=== PATIENT | male | born 1965 | race African-American/Black ===

== ENCOUNTER 2024-04-12 10:15 | Emergency (ER) | payer BC, MEDICAID, OTHER ==
[~2024-04-12] VITALS: Ht 172.7 cm; Wt 111.1 kg
[~2024-04-12 10:15] MED LIST: COGENTIN; GARL1TAB; HALDOL
[2024-04-12 10:23] VITALS: BP 155/89; PULSE 82; RESP 16; TEMP 98.2; O2SAT 97
[2024-04-12 11:10] LABS: CLARITY URINE CLEAR (CLEAR); COLOR URINE YELLOW (YELLOW); GLUCOSE URINE NEGATIVE (NEGATIVE); KETONES URINE NEGATIVE (NEGATIVE); LEUKOCYTE ESTERASE URINE NEGATIVE (NEGATIVE); NITRITE URINE NEGATIVE (NEGATIVE); OCCULT BLOOD URINE NEGATIVE (NEGATIVE); PH URINE 6.5 (4.5-8.0); PROTEIN URINE NEGATIVE (NEGATIVE); SPECIFIC GRAVITY URINE 1.017 (1.005-1.030); UROBILINOGEN URINE 0.2 E.U./dL (0.2-1.0)
[2024-04-12 11:27] LABS: BASOPHILS % 0.8 % (0.0-2.0); EOSINOPHILS % 2.5 % (0.0-5.0); HEMATOCRIT. 46.4 % (42.0-52.0); HEMOGLOBIN. 15.5 g/dL (14.0-18.0); LYMPHOCYTES % 27.2 % (20.0-50.0); MEAN CORPUSCULAR HGB CONC 33.4 g/dL (31.0-37.0); MEAN CORPUSCULAR VOLUME 95.9 fL (80.0-94.0); MEAN PLATELET VOLUME 8.2 fl (7.4-10.4); NEUTROPHILS % 59.5 % (40.0-76.0); PLATELET 251 x1000/uL (130-400); RED BLOOD CELL COUNT 4.84 mill/uL (4.7-6.1); RED CELL DISTRIBUTION WIDTH 14.2 % (11.6-14.6)
[2024-04-12 11:34] LABS: CHLORIDE 102 mEq/L (98-107); POTASSIUM 4.6 mEq/L (3.5-5.1); SODIUM 136 mEq/L (136-145)
[2024-04-12 11:35] LABS: CARBON DIOXIDE 31 mEq/L (21-32)
[2024-04-12 11:36] LABS: CALCIUM 10.5 mg/dL (8.7-10.4)
[2024-04-12 11:40] LABS: CREATININE 1.1 mg/dL (0.6-1.3); GLUCOSE 92 mg/dL (70-105)
[2024-04-12 11:41] LABS: TROPONIN I HIGH SENSITIVITY 5 ng/L (3.0-53); UREA NITROGEN BLOOD 12 mg/dL (9-23)
[2024-04-12 11:42] LABS: ALANINE AMINOTRANSFERASE 42 IU/L (10-49); ALBUMIN 4.8 g/dL (3.2-4.8); ASPARTATE AMINOTRANSFERASE 39 IU/L (<34)
[2024-04-12 11:43] LABS: BILIRUBIN DIRECT 0.1 mg/dL (<=3.0); BILIRUBIN TOTAL 0.5 mg/dL (0.1-1.0); PROTEIN TOTAL 7.9 g/dL (6.0-8.3)
[2024-04-12] MEDS ORDERED: FAMO-135 MT (13:07)
== END 2024-04-12 13:25 | disposition home or self-care (01) ==
LOC: ER 10:15
DX: G89.29 Other chronic pain (principal); R10.9 Unspecified abdominal pain; F20.9 Schizophrenia, unspecified
CPT/HCPCS: 36415; 74176; 80048; 80076; 81003; 84484; 85025; 99284